=== PATIENT | female | born 1985 | race Caucasian/White ===

== ENCOUNTER 2020-10-08 12:13 | Outpatient (CLI) | payer BC | END 2020-10-08 12:14 | disposition home or self-care (01) | LOC: CSHLAB 12:13 | PROVIDERS: ATTEND Obstetrics & Gynecology | DX: Z01.812 Encounter for preprocedural laboratory examination (principal); Z20.822 Contact with and (suspected) exposure to COVID-19 | CPT/HCPCS: 85027; 86850; 86900; 86901; U0003; U0005 ==

== ENCOUNTER 2021-10-07 19:30 | Inpatient (IN) | payer BC ==
[~2021-10-07 19:30] MED LIST: Ibuprofen 800 MG TAB PO PRN; Lactated Ringer's 1,000 ML IV SCH; Lidocaine 1% (PF) 30 ML VIAL SC PRN; Methylergonovine 0.2 MG/ML VIAL IM PRN; Misoprostol 200 MCG TAB PR PRN; NS w/ Oxytocin 30 units 500 ML IV SCH; Ondansetron PF 4 MG/2 ML Vial IVP PRN; Promethazine HCl 25 MG/ML VIAL IM PRN; hydrALAZINE 20 MG/ML VIAL SLOW IVP PRN
[2021-10-08] MEDS ORDERED: Bupivacaine/Epinephrine 0.25% 30 ML VIAL ONE (08:00)
[2021-10-08] MEDS: Misoprostol 100 MCG TAB VAG SCH ×2 (12:40→18:13)
[2021-10-08 12:52] LABS: Hemoglobin 10.6 g/dL (12.0-15.5); Mean Corpuscular HGB CONC 33.1 g/dL (32.0-36.0); Mean Corpuscular Hemoglobin 28.2 pg (27.0-33.0); Mean Corpuscular Volume 85.1 fl (81.6-98.3); Mean Platelet Volume 11.6 fl (7.4-10.4); Platelet Count 155 10x3/uL (150-450); RBC Distribution Width 13.2 % (11.5-14.5); Red Blood Cell (RBC) Count 3.76 10x6/uL (3.90-5.03); White Blood Cell (WBC) Count 10.7 10x3/uL (3.5-10.5)
[2021-10-08 13:09] VITALS: BMI 34.7
[2021-10-08 13:22] LABS: Syphilis Antibody Nonreactive (Nonreactive); Syphilis Antibody Index 0.14 S/CO (<1.00 Non-Reactive)
[2021-10-08 13:23] LABS: HBSAg Index 0.24 S/CO (0-0.99); Hep B Surf Ag Non-Reactive S/CO (NonReactive)
[2021-10-08] MEDS ORDERED: Fentanyl 2 mcg/Bup 0.1% Cadd 100 ML ONE (19:59)
[2021-10-08] MEDS ORDERED: Promethazine HCl 25 MG/ML VIAL IM PRN (20:24)
[2021-10-08] MEDS ORDERED: ePHEDrine Sulfate 50 MG/10 ML VIAL SLOW IVP PRN (20:24)
[2021-10-08] MEDS ORDERED: Ondansetron PF 4 MG/2 ML Vial IVP PRN (20:24)
[2021-10-08] MEDS ORDERED: Lactated Ringer's 500 ML IV PRN (20:24)
[2021-10-08] MEDS ORDERED: Naloxone HCl 0.4 mg/ml Vial IVP PRN ×2 (20:24)
[2021-10-08] MEDS ORDERED: diphenhydrAMINE 50 MG/ML VIAL IVP PRN (20:24)
[2021-10-08] MEDS ORDERED: Moisturizing Cream (Eucerin) 113 GM JAR TOP PRN (20:24)
[2021-10-08] MEDS ORDERED: Acetaminophen 325 MG TAB PO PRN (20:24)
[2021-10-08] MEDS ORDERED: Fentanyl 2 mcg/Bupivacaine 0.1% Cassette 100 ML EPIDURAL SCH (20:30)
[2021-10-08] MEDS ORDERED: Communication Order-Pharmacy FS SCH (20:30)
[2021-10-08] MEDS ORDERED: Terbutaline Sulfate 1 MG/ML VIAL ONE (22:15)
[2021-10-09] MEDS ORDERED: Calcium Carbonate 500 MG ChewTAB PO SCH (00:30)
[2021-10-09] MEDS ORDERED: Lanolin Ointment 7 GM TUBE TOP PRN (06:49)
[2021-10-09] MEDS ORDERED: Benzocaine-Menthol 82.5 ML CAN TOP PRN (06:49)
[2021-10-09] MEDS ORDERED: Milk Of Magnesia 30 ML UDCUP PO PRN (06:49)
[2021-10-09] MEDS ORDERED: Zolpidem Tartrate 5 MG TAB PO PRN (06:49)
[2021-10-09] MEDS ORDERED: Bisacodyl 10 MG SUPP PR PRN (06:49)
[2021-10-09] MEDS ORDERED: Misoprostol 200 MCG TAB VAG PRN (06:49)
[2021-10-09] MEDS ORDERED: Ondansetron PF 4 MG/2 ML Vial IVP PRN (06:49)
[2021-10-09] MEDS ORDERED: Boostrix 0.5 ML (Tdap) VIAL IM ONE (06:49)
[2021-10-09] MEDS ORDERED: hydrALAZINE 20 MG/ML VIAL SLOW IVP PRN (06:49)
[2021-10-09] MEDS ORDERED: NS w/ Oxytocin 30 units 500 ML IV SCH (06:49)
[2021-10-09] MEDS ORDERED: Ibuprofen 800 MG TAB PO SCH ×2 (07:00→14:00)
[2021-10-09] MEDS: Docusate 100 MG CAP PO SCH ×2 (08:17→21:08)
[2021-10-09] MEDS: Ferrous Sulfate 325 MG TAB PO SCH ×2 (08:17→15:29)
[2021-10-09] MEDS: Enoxaparin Sodium 30 MG/0.3 ML SYRINGE SC SCH (21:07)
[2021-10-09] MEDS: Ibuprofen 800 MG TAB PO SCH (21:08)
[2021-10-10] MEDS: Ibuprofen 800 MG TAB PO SCH ×3 (05:19→21:26)
[2021-10-10] MEDS: Ferrous Sulfate 325 MG TAB PO SCH ×2 (07:57→18:06)
[2021-10-10] MEDS ORDERED: traMADol HCl 50 MG TAB PO PRN (09:19)
[2021-10-10] MEDS: Docusate 100 MG CAP PO SCH ×2 (09:46→21:26)
[2021-10-10] MEDS: Enoxaparin Sodium 30 MG/0.3 ML SYRINGE SC SCH (21:27)
[2021-10-11] MEDS: Ibuprofen 800 MG TAB PO SCH (06:00)
[2021-10-11 08:03] VITALS: BP 125/73; TEMP 98.6
[2021-10-11] MEDS: Docusate 100 MG CAP PO SCH (08:43)
[2021-10-11] MEDS: Ferrous Sulfate 325 MG TAB PO SCH (08:44)
== END 2021-10-11 11:55 | disposition home or self-care (01) | DRG 806 ==
LOC: CSHLD 10-08 11:26 → CSHPP 10-09 06:15
PROVIDERS: ADMIT Obstetrics & Gynecology; ATTEND Obstetrics & Gynecology
PROC: 10E0XZZ Delivery of Products of Conception, External Approach (ICD-10-PCS; principal; 2021-10-09)
PROC: 0KQM0ZZ Repair Perineum Muscle, Open Approach (ICD-10-PCS; 2021-10-09)
DX: O99.12 Other diseases of the blood and blood-forming organs and certain disorders involving the immune mechanism complicating childbirth (principal); D68.59 Other primary thrombophilia; Z37.0 Single live birth; E72.12 Methylenetetrahydrofolate reductase deficiency; Z3A.37 37 weeks gestation of pregnancy; O99.284 Endocrine, nutritional and metabolic diseases complicating childbirth; Z88.6 Allergy status to analgesic agent; Z91.018 Allergy to other foods; O70.1 Second degree perineal laceration during delivery
CPT/HCPCS: 36415; 51702; 85027; 86780; 86850; 86900; 86901; 87340; J1650; J3105; J7120